=== PATIENT | female | born 2000 | race Caucasian/White ===

== ENCOUNTER 2023-01-21 19:40 | Inpatient (IN) | payer BC ==
[~2023-01-21] VITALS: Ht 157.5 cm; Wt 68.2 kg
[2023-01-21] MEDS ORDERED: ACETAMINOPHEN 325 MG TABLET ONE (19:54)
[2023-01-21] MEDS ORDERED: KETOROLAC TROMETHAMINE 60 MG/2 ML VIAL IM ONE ×2 (19:55→20:00)
[2023-01-21] MEDS ORDERED: ACETAMINOPHEN 500 MG TABLET PO ONE (20:00)
[2023-01-21 20:06] LABS: GLUCOMETER DEV NAME(LOC) ERT.5; GLUCOSE,POINT OF CARE 107 MG/DL (70-110)
[2023-01-21 20:20] LABS: BASOPHILS % (AUTO) 0.5 % (0.0-2.0); EOSINOPHILS % (AUTO) 0.1 % (1.0-6.0); HEMATOCRIT 39.7 % (36-46); HEMOGLOBIN 13.5 g/dL (12.0-16.0); LYMPHOCYTES # (AUTO) 0.8 K/uL (1.0-4.8); LYMPHOCYTES % (AUTO) 5.3 % (22.0-44.0); MEAN CORPUSCULAR HEMOGLOBIN 29.5 pg (26.0-34.0); MEAN CORPUSCULAR HGB CONC 34.1 G/dL (31.0-37.0); MEAN CORPUSCULAR VOLUME 87 fL (80-100); MONOCYTES # (AUTO) 0.6 K/uL (0.1-1.0); MONOCYTES % (AUTO) 4.3 % (2.0-9.0); NEUTROPHILS # (AUTO) 13.2 K/uL (1.8-7.7); PLATELET COUNT (AUTO) 278 K/uL (150-450); RED BLOOD CELL COUNT(AUTO) 4.59 MIL/uL (4.00-5.20); WHITE BLOOD COUNT (AUTO) 14.7 K/uL (4.5-11.0)
[2023-01-21 20:22] LABS: NEUTROPHILS % (AUTO) 89.8 % (40.0-70.0)
[2023-01-21 20:39] LABS: ANION GAP 13 mmol/L (8-16); CARBON DIOXIDE 22 mmol/L (22-29); CHLORIDE 98 mmol/L (98-107); CREATININE 0.88 mg/dL (0.60-1.30); GLOMERULAR FILTR. RATE CALC > 60 mL/min (>60); GLUCOSE,RANDOM 114 mg/dL (70-110); POTASSIUM 3.3 mmol/L (3.5-5.1); SODIUM SERUM 133 mmol/L (136-145); UREA NITROGEN, BLOOD 9 mg/dL (7-18)
[2023-01-21 20:46] LABS: ALANINE AMINOTRANSFERASE 21 U/L (12-78); ALKALINE PHOSPHATASE 104 U/L (46-116); ASPARTATE AMINOTRANSFERASE 23 U/L (15-37); BILIRUBIN,TOTAL 1.2 mg/dL (0.1-1.0); LIPASE 18 U/L (16-77); PLATELET MORPHOLOGY COMMENT GIANT PLTS PRESENT; RBC MORPHOLOGY COMMENT NORMAL RBC MORPH; TOTAL PROTEIN, SERUM 7.5 g/dL (6.4-8.2)
[2023-01-21 20:47] LABS: LACTIC ACID 1.2 mmol/L (0.4-2.0)
[2023-01-21 20:56] LABS: APPEARANCE,URINE HAZY (CLEAR); BILIRUBIN,URINE NEGATIVE (NEGATIVE); COLOR,URINE LIGHT YELLOW (YELLOW); GLUCOSE, URINE (UA) NEGATIVE (NEGATIVE); KETONES,URINE NEGATIVE (NEGATIVE); LEUKOCYTE ESTERASE ,URINE LARGE (NEGATIVE); NITRATE,URINE NEGATIVE (NEGATIVE); OCCULT BLOOD,URINE NEGATIVE (NEGATIVE); PH,URINE 7.5 (5.0-8.0); PROTEIN,URINE 30-70 mg/dL (NEGATIVE); SPECIFIC GRAVITIY, URINE 1.015 (1.003-1.030)
[2023-01-21 21:01] LABS: BACTERIA,URINE Many /HPF (None Seen); RBC,URINE 0-2 /HPF (0-2); WBC,URINE 51-100 /HPF (0-5)
[2023-01-21 21:02] LABS: SQUAMOUS EPITHELIAL CELL,UR Few /LPF (None Seen)
[2023-01-21] MEDS ORDERED: 0.9% SODIUM CHLORIDE 10 ML SYRINGE IVP PRN (22:00)
[2023-01-21] MEDS ORDERED: CefTRIAXone 1 GM/DEXTROSE 50 ML IV ONE ×2 (22:00→22:15)
[2023-01-21] MEDS ORDERED: SODIUM CHLORIDE 0.9% 2,050 ML IV ONE (22:00)
[2023-01-21] MEDS ORDERED: VENL50TA44 PO (22:11)
[2023-01-21] MEDS ORDERED: PROP10TA73 PO (22:11)
[2023-01-21] MEDS ORDERED: KETOROLAC TROMETHAMINE 15 MG/ML VIAL IVP PRN (22:15)
[2023-01-21] MEDS ORDERED: NALOXONE HCL 1 MG/ML 2 ML SYRINGE IVP PRN (22:15)
[2023-01-21] MEDS: HEPARIN SODIUM,PORCINE 5,000 UNITS/ML VIAL SQ SCH (22:15)
[2023-01-21] MEDS ORDERED: ONDANSETRON HCL 4 MG/2 ML VIAL IVP PRN (22:15)
[2023-01-21] MEDS ORDERED: RINGERS SOLUTION,LACTATED 2,050 ML IV ONE (22:15)
[2023-01-21] MEDS ORDERED: POTASSIUM CHLORIDE 10 MEQ ER TABLET PO ONE (22:15)
[2023-01-21] MEDS: RINGERS SOLUTION,LACTATED 1,000 ML IV SCH (22:31)
[2023-01-21 22:36] LABS: PROTHROMBIN TIME 10.4 SEC (9.4-11.6)
[2023-01-21 23:05] LABS: D-DIMER 0.31 mg/L FEU (0.00-0.50)
[2023-01-21 23:10] LABS: FIBRINOGEN 423 mg/dL (200-400)
[2023-01-22 02:09] LABS: COVID AG,FIA SOURCE NASOPHARYNGEAL
[2023-01-22 02:29] LABS: SARS-COV2 (COVID) ANTIGEN,FIA Negative (Negative)
[2023-01-22] MEDS: MORPHINE SULFATE 2 MG/ML SYRINGE IVP PRN ×3 (04:38→21:25)
[2023-01-22 07:08] LABS: BASOPHILS % (AUTO) 0.3 % (0.0-2.0); EOSINOPHILS % (AUTO) 0.3 % (1.0-6.0); HEMATOCRIT 36.3 % (36-46); HEMOGLOBIN 12.4 g/dL (12.0-16.0); LYMPHOCYTES # (AUTO) 1.3 K/uL (1.0-4.8); LYMPHOCYTES % (AUTO) 11.7 % (22.0-44.0); MEAN CORPUSCULAR HEMOGLOBIN 30.1 pg (26.0-34.0); MEAN CORPUSCULAR HGB CONC 34.3 G/dL (31.0-37.0); MEAN CORPUSCULAR VOLUME 88 fL (80-100); MONOCYTES # (AUTO) 0.5 K/uL (0.1-1.0); MONOCYTES % (AUTO) 4.7 % (2.0-9.0); PLATELET COUNT (AUTO) 203 K/uL (150-450); RED BLOOD CELL COUNT(AUTO) 4.13 MIL/uL (4.00-5.20); WHITE BLOOD COUNT (AUTO) 10.8 K/uL (4.5-11.0)
[2023-01-22 07:14] LABS: ANION GAP 10 mmol/L (8-16); CALCIUM, TOTAL 8.2 mg/dL (8.8-10.5); CARBON DIOXIDE 25 mmol/L (22-29); CHLORIDE 101 mmol/L (98-107); CREATININE 0.74 mg/dL (0.60-1.30); GLOMERULAR FILTR. RATE CALC > 60 mL/min (>60); GLUCOSE,RANDOM 87 mg/dL (70-110); POTASSIUM 3.9 mmol/L (3.5-5.1); SODIUM SERUM 136 mmol/L (136-145); UREA NITROGEN, BLOOD 7 mg/dL (7-18)
[2023-01-22] MEDS: DOCUSATE SODIUM 100 MG CAPSULE PO SCH ×2 (09:00→21:22)
[2023-01-22] MEDS: RINGERS SOLUTION,LACTATED 1,000 ML IV SCH ×2 (09:15→18:16)
[2023-01-22] MEDS: HEPARIN SODIUM,PORCINE 5,000 UNITS/ML VIAL SQ SCH ×2 (09:16→21:25)
[2023-01-22] MEDS ORDERED: MAGNESIUM SULFATE 4 GM/WATER 100 ML IV PRN (10:00)
[2023-01-22] MEDS ORDERED: MAGNESIUM SULFATE 2 GM/WATER 50 ML IV PRN (10:00)
[2023-01-22 11:06] VITALS: BP 116/69; PULSE 73; RESP 18; TEMP 98.9
[2023-01-22 12:07] LABS: ALBUMIN 3.1 g/dL (3.4-5.0)
[2023-01-22] MEDS: ACETAMINOPHEN 325 MG TABLET PO PRN (12:44)
[2023-01-22] MEDS ORDERED: LORazepam 2 MG/ML VIAL IVP ONE (12:45)
[2023-01-22] MEDS ORDERED: GADOTERATE MEGLUMINE 10 MMOL/20 ML VIAL IVP ONE (13:25)
[2023-01-22 19:45] VITALS: BP 135/78; PULSE 89; RESP 18; TEMP 98.8
[2023-01-22] MEDS: CefTRIAXone SODIUM 2 GM in DEXTROSE 5%-WATER 50 ML IV SCH (21:21)
[2023-01-23] MEDS: RINGERS SOLUTION,LACTATED 1,000 ML IV SCH ×2 (01:52→15:38)
[2023-01-23 03:54] VITALS: BP 126/60; PULSE 95; RESP 20; TEMP 100.1
[2023-01-23] MEDS: SUMAtriptan SUCCINATE 25 MG TABLET PO PRN ×2 (04:03→15:32)
[2023-01-23] MEDS: ACETAMINOPHEN 325 MG TABLET PO PRN (04:05)
[2023-01-23 06:51] LABS: BASOPHILS % (AUTO) 0.3 % (0.0-2.0); EOSINOPHILS % (AUTO) 0.2 % (1.0-6.0); HEMOGLOBIN 11.7 g/dL (12.0-16.0); LYMPHOCYTES % (AUTO) 20.5 % (22.0-44.0); MEAN CORPUSCULAR HEMOGLOBIN 29.4 pg (26.0-34.0); MEAN CORPUSCULAR HGB CONC 33.3 G/dL (31.0-37.0); MEAN CORPUSCULAR VOLUME 88 fL (80-100); MONOCYTES # (AUTO) 0.9 K/uL (0.1-1.0); MONOCYTES % (AUTO) 9.3 % (2.0-9.0); NEUTROPHILS # (AUTO) 6.6 K/uL (1.8-7.7); NEUTROPHILS % (AUTO) 69.7 % (40.0-70.0); PLATELET COUNT (AUTO) 196 K/uL (150-450); RED BLOOD CELL COUNT(AUTO) 3.98 MIL/uL (4.00-5.20); RED CELL DISTRIBUTION WIDTH 13.1 % (11.5-14.5); WHITE BLOOD COUNT (AUTO) 9.5 K/uL (4.5-11.0)
[2023-01-23 07:01] LABS: ANION GAP 12 mmol/L (8-16); CALCIUM, TOTAL 7.7 mg/dL (8.8-10.5); CARBON DIOXIDE 22 mmol/L (22-29); CHLORIDE 100 mmol/L (98-107); CREATININE 0.68 mg/dL (0.60-1.30); GLOMERULAR FILTR. RATE CALC > 60 mL/min (>60); GLUCOSE,RANDOM 80 mg/dL (70-110); POTASSIUM 3.2 mmol/L (3.5-5.1); SODIUM SERUM 134 mmol/L (136-145); UREA NITROGEN, BLOOD 5 mg/dL (7-18)
[2023-01-23 07:47] VITALS: BP 115/70; PULSE 78; RESP 20; TEMP 98.5
[2023-01-23] MEDS: DOCUSATE SODIUM 100 MG CAPSULE PO SCH ×3 (09:16→20:09)
[2023-01-23] MEDS: HEPARIN SODIUM,PORCINE 5,000 UNITS/ML VIAL SQ SCH ×2 (09:17→22:15)
[2023-01-23 09:35] LABS: SODIUM,URINE RANDOM 167 mmol/l (20-110)
[2023-01-23 10:17] LABS: OSMOLALITY,URINE 469 mOsm/kg (50-1500)
[2023-01-23] MEDS ORDERED: POTASSIUM CHLORIDE 20 MEQ ER TABLET PO PRN (11:30)
[2023-01-23] MEDS ORDERED: POTASSIUM CHL 10 MEQ/WATER 50 ML IV PRN (11:30)
[2023-01-23] MEDS ORDERED: MAGNESIUM SULFATE 2 GM/WATER 50 ML IV PRN (11:30)
[2023-01-23] MEDS ORDERED: MAGNESIUM OXIDE 400 MG TABLET PO PRN (11:30)
[2023-01-23] MEDS ORDERED: MAGNESIUM SULFATE 4 GM/WATER 100 ML IV PRN (11:30)
[2023-01-23 11:46] LABS: ALBUMIN 2.9 g/dL (3.4-5.0)
[2023-01-23] MEDS ORDERED: SODIUM CHLORIDE 0.9% 250 ML IV ONE (15:30)
[2023-01-23 17:25] VITALS: BP 138/92; PULSE 92; RESP 20; TEMP 99.6
[2023-01-23 19:40] VITALS: BP 113/74; PULSE 83; RESP 18; TEMP 99
[2023-01-23] MEDS: CefTRIAXone SODIUM 2 GM in DEXTROSE 5%-WATER 50 ML IV SCH (20:05)
[2023-01-23] MEDS: MAGNESIUM OXIDE 400 MG TABLET PO PRN ×2 (20:05→22:50)
[2023-01-24] MEDS: MAGNESIUM OXIDE 400 MG TABLET PO PRN (01:26)
[2023-01-24] MEDS: SUMAtriptan SUCCINATE 25 MG TABLET PO PRN (01:29)
[2023-01-24 04:10] VITALS: BP 119/77; PULSE 79; RESP 16; TEMP 98.9
[2023-01-24 06:44] LABS: BASOPHILS % (AUTO) 0.6 % (0.0-2.0); EOSINOPHILS % (AUTO) 1.3 % (1.0-6.0); HEMOGLOBIN 11.8 g/dL (12.0-16.0); LYMPHOCYTES # (AUTO) 2.3 K/uL (1.0-4.8); MEAN CORPUSCULAR HEMOGLOBIN 29.7 pg (26.0-34.0); MEAN CORPUSCULAR HGB CONC 33.8 G/dL (31.0-37.0); MEAN CORPUSCULAR VOLUME 88 fL (80-100); MONOCYTES # (AUTO) 0.6 K/uL (0.1-1.0); MONOCYTES % (AUTO) 8.1 % (2.0-9.0); NEUTROPHILS # (AUTO) 4.4 K/uL (1.8-7.7); PLATELET COUNT (AUTO) 193 K/uL (150-450); RED BLOOD CELL COUNT(AUTO) 3.97 MIL/uL (4.00-5.20); RED CELL DISTRIBUTION WIDTH 13.2 % (11.5-14.5); WHITE BLOOD COUNT (AUTO) 7.5 K/uL (4.5-11.0)
[2023-01-24 06:57] LABS: ANION GAP 14 mmol/L (8-16); CALCIUM, TOTAL 8.6 mg/dL (8.8-10.5); CARBON DIOXIDE 26 mmol/L (22-29); CHLORIDE 100 mmol/L (98-107); GLOMERULAR FILTR. RATE CALC > 60 mL/min (>60); GLUCOSE,RANDOM 96 mg/dL (70-110); POTASSIUM 3.7 mmol/L (3.5-5.1); SODIUM SERUM 140 mmol/L (136-145); UREA NITROGEN, BLOOD 7 mg/dL (7-18)
[2023-01-24] MEDS: DOCUSATE SODIUM 100 MG CAPSULE PO SCH (08:17)
[2023-01-24] MEDS: HEPARIN SODIUM,PORCINE 5,000 UNITS/ML VIAL SQ SCH (08:17)
[2023-01-24 08:32] VITALS: BP 124/76; PULSE 82; RESP 18; TEMP 98.6
[2023-01-24] MEDS ORDERED: LEVO-72 PO (10:07)
== END 2023-01-24 16:00 | disposition home or self-care (01) | DRG 872 ==
LOC: EMS 19:43 → ICUN 01-22 04:31 → 6N 01-22 10:50
PROVIDERS: ADMIT Internal Medicine; ATTEND Internal Medicine
DX: A41.9 Sepsis, unspecified organism (principal); N10 Acute pyelonephritis; F32.9 Major depressive disorder, single episode, unspecified; G43.909 Migraine, unspecified, not intractable, without status migrainosus; I10 Essential (primary) hypertension; Z20.822 Contact with and (suspected) exposure to COVID-19; E87.6 Hypokalemia; M54.2 Cervicalgia; M54.9 Dorsalgia, unspecified; Z79.899 Other long term (current) drug therapy
CPT/HCPCS: 71045; 72156; 72157; 72158; 76770; 80048; 80053; 81001; 82040; 82962; 83605; 83690; 83735; 83930; 83935; 84132; 84145; 84300; 84703; 85025; 85362; 85379; 85384; 85610; 87040; 87086; 87186; 87491; 87591; 99291; J0696; J1644; J1885; J2060; J2270; J3475; J7050; J7060; J7120; 36415-L1; 36415-TC